=== PATIENT | male | born 1955 | race Caucasian/White ===

== ENCOUNTER → 2017-09-06 12:25 | Outpatient (CLI) | payer BC | END | disposition home or self-care (01) | LOC: D.CT 12:25 | DX: R31.9 Hematuria, unspecified (principal) ==

== ENCOUNTER → 2017-09-15 12:37 | Outpatient (CLI) | payer BC | END | disposition home or self-care (01) | LOC: D.CT 12:37 | DX: N32.9 Bladder disorder, unspecified (principal) ==